=== PATIENT | female | born 1955 | race Caucasian/White ===

== ENCOUNTER 2018-08-07 11:02 | Outpatient (CLI) | payer OTHER | END 2018-08-07 23:59 | disposition home or self-care (01) | LOC: CFH 11:02 | PROVIDERS: ATTEND General Practice | DX: Z12.31 Encounter for screening mammogram for malignant neoplasm of breast (principal); N63.20 Unspecified lump in the left breast, unspecified quadrant | CPT/HCPCS: 77067 ==

== ENCOUNTER 2019-11-04 09:38 | Day surgery (SDC) | payer OTHER, MEDICARE ==
[~2019-11-04] VITALS: Ht 167.6 cm; Wt 83.6 kg
[2019-11-04] MEDS ORDERED: LISI-170 PO (10:06)
[2019-11-04] MEDS ORDERED: ATOR40TA PO (10:06)
[2019-11-04] MEDS ORDERED: CALC-55 PO (10:06)
[2019-11-04] MEDS ORDERED: OMEP-110 PO (10:06)
[2019-11-04] MEDS ORDERED: METO50TA82 PO (10:06)
[2019-11-04] MEDS ORDERED: TRAZ-175 PO (10:06)
[2019-11-04] MEDS ORDERED: NITR100C56 PO (10:06)
[2019-11-04 10:07] VITALS: BP 146/71
[2019-11-04 10:51] LABS: BASOPHILS # (AUTO) 0.04 x10^3/uL (0-0.1); BASOPHILS % (AUTO) 1 % (0-1); EOSINOPHILS # (AUTO) 0.21 x10^3/uL (0-0.4); EOSINOPHILS % (AUTO) 3 % (1-7); LYMPHOCYTES # (AUTO) 2.56 x10^3/uL (1-3.4); LYMPHOCYTES % (AUTO) 35 % (22-44); MD NO; MEAN CORPUSCULAR HEMOGLOBIN 29.3 pg (27.0-34.8); MEAN CORPUSCULAR HGB CONC 33.2 g/dL (32.4-35.8); MEAN CORPUSCULAR VOLUME 88.1 fL (80-100); MEAN PLATELET VOLUME 7.3 fL (7.4-10.4); MONOCYTES # (AUTO) 0.53 x10^3/uL (0.2-0.8); MONOCYTES % (AUTO) 7 % (2-9); NEUTROPHILS # (AUTO) 4.05 x10^3/uL (1.8-6.8); NEUTROPHILS % (AUTO) 55 % (42-75); PLATELET COUNT 399 x10^3/uL (130-400); RED BLOOD COUNT 4.52 x10^6/uL (3.82-5.3); RED CELL DISTRIBUTION WIDTH 14.6 % (9.6-15.2)
[2019-11-04 11:02] LABS: ANION GAP 6 mmol/L (5-15); CALCIUM 9.1 mg/dL (8.5-10.1); CHLORIDE 115 mmol/L (98-107); CREATININE 0.76 mg/dL (0.55-1.02)
[2019-11-04] MEDS ORDERED: MIDAZOLAM 1 MG/ML, 5ML ONE (12:04)
[2019-11-04] MEDS ORDERED: FENTANYL PF 100 MCG/2ML ONE (12:04)
[2019-11-04] MEDS ORDERED: VERAPAMIL 2.5 MG/ML, 2ML ONE (12:05)
[2019-11-04] MEDS ORDERED: LIDOCAINE-MPF 1%, 5ML ONE (12:05)
[2019-11-04] MEDS ORDERED: HEPARIN 1,000 UNITS/ML, 10ML ONE (12:36)
[2019-11-04] MEDS ORDERED: SODIUM CHLORIDE 0.9% 1,000 ML IV SCH (12:53)
== END 2019-11-04 16:04 | disposition home or self-care (01) ==
LOC: CACL 09:38
PROVIDERS: ATTEND Internal Medicine Cardiovascular Disease
DX: R06.00 Dyspnea, unspecified (principal); I20.0 Unstable angina; I10 Essential (primary) hypertension; E78.5 Hyperlipidemia, unspecified; Z79.899 Other long term (current) drug therapy; Z87.891 Personal history of nicotine dependence; Z88.8 Allergy status to other drugs, medicaments and biological substances
CPT/HCPCS: 36415; 80048; 85025; 93458; 99156; C1769; C1894; J1644; J2250; J3010; Q9967

== ENCOUNTER 2020-05-08 14:51 | Emergency (ER) | payer MEDICARE, OTHER ==
[~2020-05-08] VITALS: Ht 167.6 cm; Wt 80.0 kg
[~2020-05-08 14:51] MED LIST: ATOR40TA PO; CALC-55 PO; LISI-170 PO; METO50TA82 PO; NITR100C56 PO; OMEP-110 PO; TRAZ-175 PO
--- NOTE | 2020-05-08 15:09 | NUR ---
Pt arrives to room from triage via wheelchair. Reports she slipped and fell "cleaning up dog pee" about 1 hr ago and did the splits. Reporting right hamstring pain- painful to extend leg and knee.
--- NOTE | 2020-05-08 15:36 | NUR ---
Pt to imaging
[2020-05-08] MEDS ORDERED: HYDROcodone/APAP 5/325 TABLET ONE (15:55)
[2020-05-08] MEDS ORDERED: HYDROcodone/APAP 5/325 TABLET PO ONE (16:00)
--- NOTE | 2020-05-08 16:00 | NUR ---
Pt back from imaging. Medicated per [facility].
[2020-05-08 17:00] VITALS: BP 135/71
--- NOTE | 2020-05-08 17:00 | NUR ---
Pt now rates pain 3/10
--- NOTE | 2020-05-08 17:04 | NUR ---
Provided pt walker and demonstrated use. Pt ambulting well with walker. Pt agrees with and understands discharge plan and instructions.
== END 2020-05-08 17:18 | disposition home or self-care (01) ==
LOC: ED 17:00
DX: S86.111A Strain of other muscle(s) and tendon(s) of posterior muscle group at lower leg level, right leg, initial encounter (principal); G89.11 Acute pain due to trauma; M25.511 Pain in right shoulder; I10 Essential (primary) hypertension; W01.0XXA Fall on same level from slipping, tripping and stumbling without subsequent striking against object, initial encounter; Y93.89 Activity, other specified; Y92.89 Other specified places as the place of occurrence of the external cause; Y99.8 Other external cause status
CPT/HCPCS: 99284